=== PATIENT | male | born 1980 | race Two or more races ===

== ENCOUNTER 2019-09-02 11:33 | Emergency (ER) | payer OTHER ==
[~2019-09-02] VITALS: Ht 182.9 cm; Wt 100.0 kg
--- NOTE | 2019-09-02 11:40 | NUR ---
PT ATA KING FROM [facility] FOR C/O CHEST PAIN SECONDARY TO COUGH THAT STARTED LAST NIGHT AT 1700. PT REPORTS THE CHEST PAIN IS POSITIONAL AND R/T HIS COUGH. 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 HX HIV, DM AND "ENLARGED HEART". PT STATES HE HAD A GI INFECTION THAT SPREAD TO HIS BLOODSTREAM & HEART 3 YEARS AGO, TREATED AT [facility]. ARRIVES TO ED A&OX4, COUGH PRESENT BUT NO BREATHING DIFFICULTY. PT DENIES CHEST PAIN AT THIS TIME, C/O HEADACHE. HR 120s-130s ST. ERP IN ROOM IMMEDIATELY. EKG DONE. POC RV'WD WITH PT. Addendum: 09/02/19 at 1218 by KERRI FSBS PER EMS WAS 351.
[2019-09-02] MEDS ORDERED: SODIUM CHLORIDE FLUSH 10ML SYR IVF ONE (12:00)
[2019-09-02] MEDS: PLEASE ENTER ALLERGIES MC SCH ×3 (12:00→14:40)
[2019-09-02] MEDS ORDERED: NITROGLYCERIN SINGLE TAB 0.4 MG SL PRN (12:00)
[2019-09-02 12:02] LABS: MEAN CORPUSCULAR HEMOGLOBIN 26.3 pg (27.5-34.5); MEAN CORPUSCULAR HGB CONC 32.1 g/dL (33.2-36.2); MEAN CORPUSCULAR VOLUME 81.8 fL (81-97); MEAN PLATELET VOLUME 8.9 fL (7.4-10.4); PLATELET COUNT 251 x10^3/uL (130-400); RED BLOOD COUNT 5.49 x10^6/uL (4.38-5.82); RED CELL DISTRIBUTION WIDTH 14.2 % (9.4-14.8)
[2019-09-02 12:11] LABS: ALANINE AMINOTRANSFERASE 38 U/L (12-78); ALBUMIN 3.6 g/dL (3.4-5.0); ANION GAP 6 mmol/L (5-15); CALCIUM 9.1 mg/dL (8.5-10.1); CHLORIDE 103 mmol/L (98-107)
[2019-09-02 12:16] LABS: ALKALINE PHOSPHATASE 76 U/L (45-117); BILIRUBIN,TOTAL 0.3 mg/dL (0.2-1.0); CREATININE 1.45 mg/dL (0.7-1.3); TOTAL PROTEIN 8.8 g/dL (6.4-8.2); TROPONIN I < 0.015 ng/mL (0.000-0.045)
[2019-09-02 12:18] LABS: BASOPHILS # (AUTO) 0.02 x10^3/uL (0-0.1); BASOPHILS % (AUTO) 0 % (0-1); EOSINOPHILS # (AUTO) 0.12 x10^3/uL (0-0.4); EOSINOPHILS % (AUTO) 1 % (1-7); LYMPHOCYTES # (AUTO) 1.16 x10^3/uL (1-3.4); LYMPHOCYTES % (AUTO) 12 % (22-44); MD SCAN; MONOCYTES # (AUTO) 0.78 x10^3/uL (0.2-0.8); MONOCYTES % (AUTO) 8 % (2-9); NEUTROPHILS # (AUTO) 8.04 x10^3/uL (1.8-6.8); NEUTROPHILS % (AUTO) 79 % (42-75)
--- NOTE | 2019-09-02 12:20 | NUR ---
PT C/O BODY ACHES, BACK PAIN. TEMP 101, STILL TACHY 120s. WATER PROVIDED. WILL NOTIFY ERP - NOT PRESENT AT THIS TIME.
[2019-09-02] MEDS ORDERED: KETOROLAC 30 MG/1 ML ONE (12:58)
[2019-09-02] MEDS ORDERED: ACETAMINOPHEN 500 MG TABLET ONE (12:58)
[2019-09-02] MEDS ORDERED: KETOROLAC 30 MG/1 ML IVPush ONE (13:00)
[2019-09-02] MEDS ORDERED: SODIUM CHLORIDE 0.9% 1,000ML IVBOLUS ONE (13:00)
[2019-09-02] MEDS ORDERED: ACETAMINOPHEN 500 MG TABLET PO ONE (13:00)
--- NOTE | 2019-09-02 13:07 | NUR ---
PT MEDICATED WITH TYLENOL & TORADOL PER ORDERS. IV BOLUS INFUSING. PT RESTING IN RFORT BRAGG, AWAKENS EASILY. STATES HIS FAMILY MEMBERS AT HOME HAVE BEEN SICK.
[2019-09-02 13:21] LABS: RAPID INFLUENZA A Negative (Negative); RAPID INFLUENZA B Negative (Negative)
--- NOTE | 2019-09-02 13:34 | NUR ---
PT UP TO BR, INSTRUCTED ON CLEAN CATCH URINE SAMPLE. ERP WAS IN FOR RECHECK, RV'WD POC WITH PT.
[2019-09-02 13:47] LABS: MICROSCOPIC NOT IND
--- NOTE | 2019-09-02 13:53 | NUR ---
PT C/O ABD JESSIKAING. ERP AWARE.
[2019-09-02 13:57] LABS: CULTURE INDICATED? NO
--- NOTE | 2019-09-02 14:30 | NUR ---
PT TO CT VIA [facility].
--- NOTE | 2019-09-02 14:44 | NUR ---
PT RETURNS FROM CT. HR DOWN TO 100s AFTER FLUID BOLUS. PT REQUESTING JUICE OR BROTH. INFORMED PT HE IS NPO UNTIL CT RESULTS BACK.
--- NOTE | 2019-09-02 15:25 | NUR ---
ERP AT FOR RECHECK.
[2019-09-02 16:46] VITALS: BP 114/76
--- NOTE | 2019-09-02 16:46 | NUR ---
BREAK RN: ASSUMED CARE FOR DISCHARGE ONLY Patient/Caregiver given discharge instructions and they have confirmed that they understand the instructions. Patient ambulatory with steady gait.
== END 2019-09-02 16:50 | disposition home or self-care (01) ==
LOC: ED 12:23
DX: J18.1 Lobar pneumonia, unspecified organism (principal); I50.9 Heart failure, unspecified; F17.200 Nicotine dependence, unspecified, uncomplicated; Z90.49 Acquired absence of other specified parts of digestive tract
CPT/HCPCS: 36415; 71045; 74177; 80053; 81003; 83880; 84145; 84484; 85025; 87400; 93005; 96374; 99284; J1885; J7030; 96361

== ENCOUNTER 2019-10-02 12:46 | Emergency (ER) | payer MEDICAID, MEDICARE, OTHER ==
[~2019-10-02] VITALS: Ht 182.9 cm; Wt 100.0 kg
[2019-10-02 12:53] VITALS: BP 150/95
--- NOTE | 2019-10-02 12:59 | NUR ---
MD TO BEDSIDE FOR ASSESSMENT, ORDERS RECEIVED AT THIS TIME
[2019-10-02] MEDS ORDERED: COLCHICINE 0.6 MG CAPSULE PO ONE ×2 (13:00)
--- NOTE | 2019-10-02 13:00 | NUR ---
PT COMING FROM HOME BIB EMS FOR "GOUT FLARE UP" PAIN AND SWELLING OF LEFT FOOT X4 DAYS, WOUNDS TO RIGHT GROIN X4 DAYS AND FEELING LIKE BUGS ARE CRAWLING ON HIM. PT STS METH USE AT 0500 TODAY. CONNECTED TO MONITORING, TACHY HR NOTED, SLIGHT HTN. PT INSTRUCTED ABOUT NEED FOR URINE SAMPLE. CALL LIGHT WIHTIN REACH. GIVEN WATER AND BLANKET FOR COMFORT
[2019-10-02] MEDS ORDERED: COLCHICINE 0.6 MG CAPSULE ONE ×2 (13:06→14:15)
--- NOTE | 2019-10-02 13:18 | NUR ---
PT MEDICATED WITH FIRST DOSE FOR GOUT PER OCT. DRINKING WATER AT THIS TIME FOR URINE SAMPLE. PT REMAINS MD KRISTOPHER AWARE. CALL LIGHT WITHIN REACH
--- NOTE | 2019-10-02 14:13 | NUR ---
PT UP TO RESTROOM TO ATTEMPT URINE SAMPLE
--- NOTE | 2019-10-02 14:33 | NUR ---
UA COLLECTED AND SENT TO LAB
[2019-10-02 14:46] LABS: MICROSCOPIC NOT IND
[2019-10-02 14:54] LABS: CULTURE INDICATED? NO
== END 2019-10-02 15:02 | disposition home or self-care (01) ==
LOC: ED 13:53
DX: M10.071 Idiopathic gout, right ankle and foot (principal); I50.9 Heart failure, unspecified
CPT/HCPCS: 81003; 99283